=== PATIENT | female | born 1990 | race Caucasian/White ===

== ENCOUNTER 2017-12-30 09:05 | Emergency (ER) | payer OTHER ==
[~2017-12-30] VITALS: Ht 167.6 cm; Wt 54.4 kg
[2017-12-30] MEDS ORDERED: TRAMADOL PO (09:16)
[2017-12-30 10:07] VITALS: BP 128/79
--- NOTE | 2017-12-30 10:07 | NUR ---
PT WAS EVALUATED BY DR DAVIDSON. PT WAS D/C TO HOME. D/C INSTRUCTIONS GIVEN TO THE PT.
== END 2017-12-30 10:39 | disposition home or self-care (01) ==
LOC: ER 09:05
DX: J01.10 Acute frontal sinusitis, unspecified (principal); G89.29 Other chronic pain; M54.9 Dorsalgia, unspecified
CPT/HCPCS: 99283; A4663

== ENCOUNTER 2018-01-17 15:59 | Emergency (ER) | payer OTHER ==
[~2018-01-17] VITALS: Ht 167.6 cm; Wt 54.4 kg
[~2018-01-17 15:59] MED LIST: TRAMADOL PO
[2018-01-17 17:07] LABS: BASOPHILS % (AUTO) 0.3 % (0.0-2.0); EOSINOPHILS % (AUTO) 0.2 % (0.0-7.0); HEMATOCRIT 41.5 % (31.2-41.9); HEMOGLOBIN 14.1 g/dL (10.9-14.3); LYMPHOCYTES # (AUTO) 1.4 K/uL (20.0-40.0); LYMPHOCYTES % (AUTO) 19.3 % (20.5-51.5); MEAN CORPUSCULAR HEMOGLOBIN 29.4 uug (24.7-32.8); MEAN CORPUSCULAR HGB CONC 34 g/dL (32.3-35.6); MEAN CORPUSCULAR VOLUME 86.7 fL (75.5-95.3); MONOCYTES # (AUTO) 0.6 K/uL (2.0-10.0); MONOCYTES % (AUTO) 8.1 % (0.0-11.0); NEUTROPHILS # (AUTO) 5.2 K/uL (1.8-8.9); NEUTROPHILS % (AUTO) 72.1 % (38.5-71.5); PLATELET COUNT (AUTO) 238 K/uL (179-408); RED BLOOD CELL COUNT(AUTO) 4.79 MIL/uL (3.63-4.92); WHITE BLOOD COUNT (AUTO) 7.3 K/uL (3.8-11.8)
[2018-01-17 17:10] LABS: *URINE HCG, QUAL NEGATIVE (NEGATIVE)
--- NOTE | 2018-01-17 17:25 | NUR ---
Patient discharged to home in stable conditon. Written and verbal after care instructions given. Patient verbalizes understanding of instructions.pt walks in steady gait. pt deneis being dizzy.
[2018-01-17 17:26] VITALS: BP 118/81
== END 2018-01-17 17:29 | disposition home or self-care (01) ==
LOC: ER 16:01
DX: N93.9 Abnormal uterine and vaginal bleeding, unspecified (principal); G89.29 Other chronic pain; M54.9 Dorsalgia, unspecified
CPT/HCPCS: 36415; 84703; 85025; A4663

== ENCOUNTER 2018-03-11 22:18 | Emergency (ER) | payer OTHER ==
[~2018-03-11] VITALS: Ht 167.6 cm; Wt 54.4 kg
[2018-03-11 23:34] LABS: BASOPHILS % (AUTO) 0.4 % (0.0-2.0); EOSINOPHILS # (AUTO) 0.1 K/uL (0.0-0.7); EOSINOPHILS % (AUTO) 1.5 % (0.0-7.0); HEMOGLOBIN 13.8 g/dL (10.9-14.3); LYMPHOCYTES # (AUTO) 2.7 K/uL (20.0-40.0); LYMPHOCYTES % (AUTO) 36.7 % (20.5-51.5); MEAN CORPUSCULAR HEMOGLOBIN 29.5 uug (24.7-32.8); MEAN CORPUSCULAR HGB CONC 35 g/dL (32.3-35.6); MEAN CORPUSCULAR VOLUME 85.4 fL (75.5-95.3); MONOCYTES # (AUTO) 0.7 K/uL (2.0-10.0); MONOCYTES % (AUTO) 9.9 % (0.0-11.0); NEUTROPHILS # (AUTO) 3.8 K/uL (1.8-8.9); NEUTROPHILS % (AUTO) 51.5 % (38.5-71.5); PLATELET COUNT (AUTO) 206 K/uL (179-408); RED BLOOD CELL COUNT(AUTO) 4.68 MIL/uL (3.63-4.92); WHITE BLOOD COUNT (AUTO) 7.3 K/uL (3.8-11.8)
[2018-03-11 23:48] LABS: CREATININE 0.7 mg/dL (0.6-1.3); POTASSIUM 3.8 mmol/L (3.5-5.1)
[2018-03-12 00:01] LABS: BILIRUBIN,TOTAL 1.2 mg/dL (0.2-1.0); TOTAL PROTEIN, SERUM 7.9 g/dL (6.4-8.2)
[2018-03-12 00:08] LABS: THYROID STIMULATING HORMONE 2.62 mIU/mL (0.358-3.740)
[2018-03-12] MEDS ORDERED: diphenhydrAMINE 25 MG CAP PO ONE ×2 (00:15→00:16)
--- NOTE | 2018-03-12 00:26 | NUR ---
Patient discharged to home in stable conditon. Written and verbal after care instructions given. Patient verbalizes understanding of instructions.
== END 2018-03-12 00:27 | disposition home or self-care (01) ==
LOC: ER 22:20
DX: S80.12XA Contusion of left lower leg, initial encounter (principal); S80.11XA Contusion of right lower leg, initial encounter; G89.29 Other chronic pain; M54.9 Dorsalgia, unspecified; M25.569 Pain in unspecified knee; X58.XXXA Exposure to other specified factors, initial encounter; Y93.89 Activity, other specified; Y92.89 Other specified places as the place of occurrence of the external cause; Y99.8 Other external cause status
CPT/HCPCS: 36415; 80053; 84443; 85025; 85576; 85610; 85730; 99284; Q0163; A4663

== ENCOUNTER 2019-03-05 23:13 | Emergency (ER) | payer OTHER ==
[~2019-03-05] VITALS: Ht 167.6 cm; Wt 54.4 kg
[2019-03-05] MEDS ORDERED: ONDANSETRON ODT 4 MG TAB.RAPDIS SL ONE (23:45)
[2019-03-05] MEDS ORDERED: ONDANSETRON ODT 4 MG TAB.RAPDIS ONE (23:51)
--- NOTE | 2019-03-06 | NUR ---
PATIENT SEEN BY MD WITH ORDER FOR NAUSEA MEDICATION GIVEN AND PATIENT VERBALIZES DESIRE TO GO HOME AND REST
[2019-03-06 00:04] VITALS: BP 126/79
== END 2019-03-06 00:05 | disposition home or self-care (01) ==
LOC: ER 23:14
DX: R11.0 Nausea (principal); G89.29 Other chronic pain; M54.5 Low back pain; M25.569 Pain in unspecified knee; Z90.49 Acquired absence of other specified parts of digestive tract; Z79.899 Other long term (current) drug therapy; V49.9XXA Car occupant (driver) (passenger) injured in unspecified traffic accident, initial encounter; Y93.89 Activity, other specified; Y92.89 Other specified places as the place of occurrence of the external cause; Y99.8 Other external cause status
CPT/HCPCS: A4663; Q0162

== ENCOUNTER 2021-10-28 10:32 | Emergency (ER) | payer OTHER ==
[~2021-10-28] VITALS: Ht 172.7 cm; Wt 64.4 kg
--- NOTE | 2021-10-28 10:55 | NUR ---
DR Angelo seen and examined the pt.
[2021-10-28] MEDS ORDERED: IV NORMAL SALINE 500 ML BAG IV ONE (11:00)
[2021-10-28 11:14] LABS: MEAN CORPUSCULAR HEMOGLOBIN 27.5 uug (24.7-32.8); MEAN CORPUSCULAR VOLUME 81.9 fL (75.5-95.3); PLATELET COUNT (AUTO) 183 K/uL (179-408)
[2021-10-28 11:21] LABS: CREATININE 0.7 mg/dL (0.6-1.3); POTASSIUM 3.9 mmol/L (3.5-5.1)
[2021-10-28 11:23] LABS: *BILIRUBIN,URIN 1+ (NEGATIVE); *BLOOD, URINE 3+ (NEGATIVE); *CLARITY,URINE CLOUDY (CLEAR); *COLOR,URINE RED (YELLOW); *KETONES,URINE TRACE (NEGATIVE); *UROBILINOGEN,URINE 0.2 E.U./dl (NORMAL); LEUKOCYTE ESTERASE ,URINE 1+ (NEGATIVE); NITRITE, URINE NEGATIVE (NEGATIVE); PH,URINE 6.5 (5.0-8.0); UGLUCOSE NEGATIVE (NEGATIVE)
[2021-10-28] MEDS ORDERED: NITR100C11 PO (12:12)
--- NOTE | 2021-10-28 13:06 | NUR ---
IV removed. Catheter intact and site benign. Pressure and 4x4 gauze applied to site. No bleeding noted.
[2021-10-28 13:07] VITALS: BP 109/72
--- NOTE | 2021-10-28 13:08 | NUR ---
Patient discharged to home in stable condition. Written and verbal after care instructions given. Patient verbalizes understanding of instructions. Stressed follow up or return to ER for worsening s/s.
[2021-10-28 13:43] LABS: RBC,URINE 80-100 /HPF (0-3)
[2021-10-28 13:44] LABS: SQUAMOUS EPITHELIAL CELL,UR FEW /HPF (NONE SEEN)
[2021-10-28 13:45] LABS: BACTERIA,URINE MODERATE /HPF (NONE SEEN)
== END 2021-10-28 13:08 | disposition home or self-care (01) ==
LOC: ER 10:32
DX: O03.88 Urinary tract infection following complete or unspecified spontaneous abortion (principal)
CPT/HCPCS: 36415; 76856; 85025; 86850; 86900; 86901; 87077; 87086; A4663; J7040

== ENCOUNTER 2022-03-05 22:51 | Emergency (ER) | payer OTHER ==
[~2022-03-05] VITALS: Ht 167.6 cm; Wt 60.8 kg
[~2022-03-05 22:51] MED LIST changes: +NITR100C11 PO
--- NOTE | 2022-03-05 23:09 | NUR ---
Dr. Acevedo at bedside for MSE. Pt provided urine, sent to the lab.
[2022-03-05 23:31] LABS: *BILIRUBIN,URIN NEGATIVE (NEGATIVE); *BLOOD, URINE 1+ (NEGATIVE); *CLARITY,URINE CLEAR (CLEAR); *COLOR,URINE YELLOW (YELLOW); *KETONES,URINE NEGATIVE (NEGATIVE); *UROBILINOGEN,URINE 0.2 E.U./dl (NORMAL); LEUKOCYTE ESTERASE ,URINE NEGATIVE (NEGATIVE); NITRITE, URINE NEGATIVE (NEGATIVE); UGLUCOSE NEGATIVE (NEGATIVE)
[2022-03-05 23:42] LABS: BACTERIA,URINE NONE SEEN /HPF (NONE SEEN); SQUAMOUS EPITHELIAL CELL,UR FEW /HPF (NONE SEEN); WBC,URINE 0-3 /HPF (0-3)
[2022-03-05 23:43] LABS: HEMATOCRIT 35.1 % (31.2-41.9); MEAN CORPUSCULAR HEMOGLOBIN 28.9 uug (24.7-32.8); MEAN CORPUSCULAR VOLUME 84.6 fL (75.5-95.3); PLATELET COUNT (AUTO) 180 K/uL (179-408)
[2022-03-05 23:45] LABS: CREATININE 0.7 mg/dL (0.6-1.3); POTASSIUM 3.5 mmol/L (3.5-5.1)
[2022-03-05 23:50] LABS: BILIRUBIN,DIRECT 0.1 mg/dL (0.0-0.2); BILIRUBIN,TOTAL 0.8 mg/dL (0.2-1.0); TOTAL PROTEIN, SERUM 7.3 g/dL (6.4-8.2)
--- NOTE | 2022-03-05 23:52 | NUR ---
Ultrasound at bedside.
[2022-03-06] MEDS ORDERED: IV NS 1000 ML 1,000 ML IV ONE (00:15)
[2022-03-06] MEDS ORDERED: MAGNESIUM SULFATE/D5W 200 ML ONE (00:22)
[2022-03-06] MEDS ORDERED: PROC10TA29 PO (00:28)
[2022-03-06] MEDS ORDERED: OXYC-128 PO (00:28)
[2022-03-06] MEDS: MAGNESIUM SULFATE/D5W 100 ML IV SCH (00:29)
--- NOTE | 2022-03-06 01:02 | NUR ---
Patient discharged to home in stable condition. Written and verbal after care instructions given. Patient verbalizes understanding of instructions. Stressed follow up or return to ER for worsening s/s. Patient out of ER with steady gait, no acute signs of distress, VSS, all belongings taken, IV site discontinued, provided with copies of lab results.
[2022-03-06 02:30] VITALS: BP 115/85
== END 2022-03-06 01:15 | disposition home or self-care (01) ==
LOC: ER 22:56
DX: O99.891 Other specified diseases and conditions complicating pregnancy (principal); Z3A.01 Less than 8 weeks gestation of pregnancy; N20.1 Calculus of ureter; E83.42 Hypomagnesemia
CPT/HCPCS: 80076; 80048; 81001; 83735; 85025; 87040; 87086; 36415; 76775; 99284; 96365; J3475; J7040; A4663

== ENCOUNTER 2022-04-17 14:50 | Emergency (ER) | payer OTHER ==
[~2022-04-17] VITALS: Ht 167.6 cm; Wt 64.0 kg
[~2022-04-17 14:50] MED LIST changes: +OXYC-128 PO; +PROC10TA29 PO
[2022-04-17 15:32] LABS: HEMATOCRIT 37.9 % (31.2-41.9); MEAN CORPUSCULAR HEMOGLOBIN 29.2 uug (24.7-32.8); MEAN CORPUSCULAR VOLUME 85.3 fL (75.5-95.3); PLATELET COUNT (AUTO) 184 K/uL (179-408)
[2022-04-17 15:40] LABS: CREATININE 0.6 mg/dL (0.6-1.3); POTASSIUM 3.8 mmol/L (3.5-5.1)
[2022-04-17 15:46] LABS: BILIRUBIN,DIRECT 0.2 mg/dL (0.0-0.2); TOTAL PROTEIN, SERUM 7.5 g/dL (6.4-8.2)
== END 2022-04-17 17:31 | disposition home or self-care (01) ==
LOC: ER 14:50
DX: O26.891 Other specified pregnancy related conditions, first trimester (principal); R10.2 Pelvic and perineal pain; Z3A.13 13 weeks gestation of pregnancy
CPT/HCPCS: 36415; 70030-TC; 85025; A4663

== ENCOUNTER 2022-06-22 23:10 | Emergency (ER) | payer OTHER ==
--- NOTE | 2022-06-22 23:20 | NUR ---
Patient went up to registration window and stated she does not want to be seen anymore. Patient was encourage to wait for ERMD to eval her or come back to the nearest ER if at any point if she changes her mind.
== END 2022-06-22 23:50 | disposition left against medical advice (07) ==
LOC: ER 23:10
DX: Z53.21 Procedure and treatment not carried out due to patient leaving prior to being seen by health care provider (principal)